=== PATIENT | male | born 1975 | race Caucasian/White ===

== ENCOUNTER 2019-07-10 14:39 | Emergency (ER) | payer BC ==
[~2019-07-10] VITALS: Ht 170.2 cm; Wt 90.0 kg
[2019-07-10 14:47] VITALS: BP 142/83
[2019-07-10] MEDS ORDERED: ACETAMINOPHEN 500 MG TABLET ONE (15:18)
[2019-07-10] MEDS ORDERED: ACETAMINOPHEN 500 MG TABLET PO ONE (15:30)
[2019-07-10 15:37] LABS: RAPID INFLUENZA A Negative (Negative); RAPID INFLUENZA B Negative (Negative)
== END 2019-07-10 16:02 | disposition home or self-care (01) ==
LOC: ED 15:47
DX: J02.8 Acute pharyngitis due to other specified organisms (principal); B97.89 Other viral agents as the cause of diseases classified elsewhere; E11.9 Type 2 diabetes mellitus without complications
CPT/HCPCS: 71046; 87081; 87400; 87880; 99284